=== PATIENT | female | born 1990 | race Two or more races ===

== ENCOUNTER → 2023-10-22 | Outpatient (CLI) | payer BC ==
[2023-10-22 10:34] LABS: Basophils # (auto) 0 10 ^3/uL (0-0.2); Basophils % (auto) 0.4 % (0.0-2.0); Eosinophils # (auto) 0.1 10 ^3/uL (0-0.8); Eosinophils % (auto) 0.9 % (0.0-7.0); Hemoglobin 12.9 g/dL (12.2-16.2); Lymphocytes # (auto) 2.8 10 ^3/uL (0.4-5.4); Lymphocytes % (auto) 25.9 % (10.0-50.0); Mean Corpuscular Hemoglobin 31.4 pg (28.0-32.0); Mean Corpuscular Hgb Conc. 34.9 g/dL (32.0-36.0); Monocytes # (auto) 0.6 10 ^3/uL (0-1.3); Monocytes % (auto) 5.7 % (0.0-12.0); Neutrophils # (auto) 7.2 10 ^3/uL (1.6-8.6); Neutrophils % (auto) 67.1 % (37.0-80.0); Nucleated Red Blood Cells % 0.1 %; Red Blood Cells 4.11 10^6/uL (4.0-5.20); Red Cell Distribution Width 12.8 % (11.8-14.3); White Blood Cell 10.8 10^3/uL (4.4-10.8)
[2023-10-22 10:56] LABS: Amphetamine Screen, Urine Neg (NEGATIVE); Barbiturate Scree,Urine Neg (NEGATIVE)
[2023-10-22 10:58] LABS: Benzodiazephine Screen, Urine Neg (NEGATIVE); Cannabinoid Screen, Urine Neg (NEGATIVE); Cocaine Screen, Urine Neg (NEGATIVE); Opiate Scree,Urine Neg (NEGATIVE); Phencyclidine Screen, Urine Neg (NEGATIVE)
[2023-10-23 06:06] LABS: RPR Non Reactive (Non Reactive)
[2023-10-23 07:07] LABS: Rubeola IgG Antibody 75.1 AU/mL (Immune >16.4)
[2023-10-23 18:06] LABS: Chlamydia Trachomatis, NAA Negative (Negative); Neisseria gonorrhoeae, NAA Negative (Negative)
[2023-10-25 09:06] LABS: QuantiFERON-TB Gold Plus Negative (Negative)
== END | disposition home or self-care (01) ==
LOC: LAB 09:23
PROVIDERS: ATTEND Obstetrics & Gynecology
DX: Z11.3 Encounter for screening for infections with a predominantly sexual mode of transmission (principal); Z72.51 High risk heterosexual behavior
CPT/HCPCS: 36415; 80307; 81025; 83036; 84702; 85025; 86592; 86703; 86765; 86850; 86900; 86901; 87086; 87340

== ENCOUNTER 2024-03-21 08:50 | Observation (INO) | payer BC ==
[2024-03-21] MEDS ORDERED: SERT25TA84 PO (09:27)
--- NOTE | 2024-03-21 09:31 | DVH ---
BIOPHYSICAL PROFILE HISTORY: Polyhydraminos TECHNIQUE: Multiple transabdominal real-time grayscale sonographic images through the gravid uterus o f the fetus with duplex doppler color flow and M-mode spectral analysis FINDINGS: BIOPHYSICAL PROFILE: breathing score: 2 movement score: 2 tone score: 2 Quantitative BRIAN score: 2 (BRIAN: 23.1 cm.) Total score: 8/8 Single live fetus in cephalic presentation. heart rate 154 beats per minute. Fundal placenta without previa or abruption IMPRESSION: 1. Biophysical profile score: 8/8 2. BRIAN 23.1 cm, near upper limit of normal. HS:Y
--- NOTE | 2024-03-21 20:42 | DVHDS2 ---
Physician Discharge Progress N Final Diagnosis: testing for polyhydramnios Operations or Procedures: Operations or Procedures 34yo IUP@32.0wks VSS UA wnl NST reactive (verified by 2 RNs) FKC/PTL precautions reviewed Other Interventions Other Interventions [address] [address] Ph: [phone] DIAGNOSTIC IMAGING Diagnostic Imaging Report : [id number] Signed PATIENT: ASHLEY VALERO ACCT: [id number] UNIT: [id number] : 1990 LOC: [facility] ROOM / BED: TRIAGE2 / A AGE / SEX: 34 / F ADM STATUS: ADM IN SERVICE 2 ORDERING PHYSICIAN: LUIS ARIAS CNM PROCEDURE(s): BPP - BIOPHYSICAL PROFILE REASON: Polyhydraminos ORDER NUMBER(s): [id number], ACCESSION NUMBER(s): [id number] BIOPHYSICAL PROFILE HISTORY: Polyhydraminos TECHNIQUE: Multiple transabdominal real-time grayscale sonographic images through the gravid uterus of the fetus with duplex doppler color flow and M-mode spectral analysis FINDINGS: BIOPHYSICAL PROFILE: breathing score: 2 movement score: 2 tone score: 2 Quantitative BRIAN score: 2 (BRIAN: 23.1 cm.) Total score: 8/8 Single live fetus in cephalic presentation. heart rate 154 beats per minute. Fundal placenta without previa or abruption IMPRESSION: 1. Biophysical profile score: 8/8 2. BRIAN 23.1 cm, near upper limit of normal. HS:Y ATED BY: ELIZA MIJARES DO DICTATED DATE/TIME: 03/21/24927 SIGNED BY: ELIZA MIJARES DO SIGNED DATE/TIME: 03/21/24927 CC: Condition on Discharge: Stable Disposition: Home Discharge Instructions: Diet: Regular Activity: No Restrictions, As Tolerated Medications: PNV Follow Up Care: Specialist: f/u in 1wk Discharge Statement: "Patient was advised to return to the ER or call 911 if any headaches, dizziness, shortness of breath, chest pain, abdominal pain, bleeding, fevers, or worsening of medical condition. Patient was counseled about treatment plan, medications, possible side effects, patientverbalized understanding. All questions were answered to the best of my ability. This discharge took greater then 30 minutes in planning, reviewing documentation, counseling the patient, and discussing with other team members." LUIS ARIAS CNM Mar 21, 2024 20:41
== END 2024-03-21 10:05 | disposition home or self-care (01) ==
LOC: LDRP 08:50 → UNDOADMOB 08:50 → LDRP 08:54 → UNDODISOB 10:05
PROVIDERS: ADMIT Obstetrics & Gynecology; ATTEND Obstetrics & Gynecology
DX: O40.3XX0 Polyhydramnios, third trimester, not applicable or unspecified (principal); Z3A.32 32 weeks gestation of pregnancy; Z88.6 Allergy status to analgesic agent; Z88.0 Allergy status to penicillin; Z88.5 Allergy status to narcotic agent; Z79.899 Other long term (current) drug therapy
CPT/HCPCS: 59025; 76818; 81002; 94760; G0378

== ENCOUNTER 2024-03-28 10:00 | Observation (INO) | payer BC ==
[~2024-03-28 10:00] MED LIST: SERT25TA84 PO
--- NOTE | 2024-03-28 11:04 | DVH ---
BIOPHYSICAL PROFILE HISTORY: Poly TECHNIQUE: Multiple transabdominal real-time grayscale sonographic images through the gravid uterus of the fetus with duplex Doppler color flow and M-mode spectral analysis FINDINGS: BIOPHYSICAL PROFILE: breathing score: 2 movement score: 2 tone score: 2 Quantitative BRIAN score: 2 (BRIAN: 26.3 Cm.) Total score: 8/8 The cervix is not seen. Single live fetus in vertex presentation. heart rate 131 beats per minute. Fundal placenta without previa or abruption Biophysical profile score 8/8 corresponding to an MERLIN of 05/16/24 IMPRESSION: Biophysical profile score: 8/8 BRIAN measures 26.3 cm.
--- NOTE | 2024-03-28 12:09 | DVHDS2 ---
Physician Discharge Progress N Final Diagnosis: testing for polyhydramnios Operations or Procedures: Operations or Procedures 34yo IUP@33.0wks VSS UA wnl NST reactive (verified by 2 RNs) BPP wnl except BRIAN 26.3cm FKC/PTL precautions reviewed Condition on Discharge: Stable Disposition: Home Discharge Instructions: Diet: Regular Activity: No Restrictions, As Tolerated Medications: see med list Follow Up Care: Specialist: f/u in 1wk Discharge Statement: "Patient was advised to return to the ER or call 911 if any headaches, dizziness, shortness of breath, chest pain, abdominal pain, bleeding, fevers, or worsening of medical condition. Patient was counseled about treatment plan, medications, possible side effects, patientverbalized understanding. All questions were answered to the best of my ability. This discharge took greater then 30 minutes in planning, reviewing documentation, counseling the patient, and discussing with other team members." LUIS ARIAS CNM Mar 28, 2024 12:09
== END 2024-03-28 12:17 | disposition home or self-care (01) ==
LOC: LDRP 10:00 → UNDOADMOB 10:00 → LDRP 10:26 → UNDODISOB 12:17
PROVIDERS: ADMIT Obstetrics & Gynecology; ATTEND Obstetrics & Gynecology
DX: O40.3XX0 Polyhydramnios, third trimester, not applicable or unspecified (principal); Z3A.33 33 weeks gestation of pregnancy; Z79.899 Other long term (current) drug therapy; Z98.890 Other specified postprocedural states
CPT/HCPCS: 59025; 76818; 81002; 94760; G0378

== ENCOUNTER 2024-04-04 11:35 | Observation (INO) | payer BC ==
[2024-04-04] MEDS ORDERED: PREN1TAB71 OR (12:14)
--- NOTE | 2024-04-04 12:51 | DVH ---
CLINICAL HISTORY: Polyhydramnios. COMPARISON: US BIOPHYSICAL PROFILE on DOS: 03/28/24, US BIOPHYSICAL PROFILE on DOS: 03/21/24 TECHNIQUE: biophysical profile was performed. Transabdominal sonographic images of the fetus we re obtained. FINDINGS: The fetus is in cephalic position. heart rate measures 129 BPM. Amniotic fluid index measures 25.5 cm. The placenta is fundal in position. BPP profile is an overall score of 8/8, with 2/2 points for breathing, with at least one episode of breathing over a 30 second duration during a 30 minute observation, 2/2 points for m ovements, with 3 or more discrete body or limb movements, 2/2 points for tone, with one or more episodes of extremity extension with return to flexion, or opening and closing of hand, and 2/ 2 points for amniotic fluid, with at least 1 pocket of amniotic fluid that measures 2 cm in 2 perpend icular planes. IMPRESSION: BPP score of 8/8. Amniotic fluid index of 25.5 cm.
--- NOTE | 2024-04-04 22:01 | DVHDS2 ---
Physician Discharge Progress N Final Diagnosis: testing for polyhydramnios Operations or Procedures: Operations or Procedures 34yo IUP@34+wks VSS UA wnl NST reactive (verified by 2 RNs) BPP wnl except BRIAN 25.5cm FKC/PTL precautions reviewed. Condition on Discharge: Stable Disposition: Home Discharge Instructions: Diet: Regular Activity: No Restrictions, As Tolerated Medications: see med list Follow Up Care: Specialist: f/u in 1 wk Discharge Statement: "Patient was advised to return to the ER or call 911 if any headaches, dizziness, shortness of breath, chest pain, abdominal pain, bleeding, fevers, or worsening of medical condition. Patient was counseled about treatment plan, medications, possible side effects, patientverbalized understanding. All questions were answered to the best of my ability. This discharge took greater then 30 minutes in planning, reviewing documentation, counseling the patient, and discussing with other team members." LUIS ARIAS CNM Apr 04, 2024 22:01
== END 2024-04-04 13:25 | disposition home or self-care (01) ==
LOC: UNDOADMOB 11:35 → LDRP 11:35
PROVIDERS: ADMIT Obstetrics & Gynecology; ATTEND Obstetrics & Gynecology
DX: O40.3XX0 Polyhydramnios, third trimester, not applicable or unspecified (principal); Z3A.34 34 weeks gestation of pregnancy; Z88.6 Allergy status to analgesic agent; Z88.5 Allergy status to narcotic agent; Z79.899 Other long term (current) drug therapy
CPT/HCPCS: 59025; 76818; 81002; G0378

== ENCOUNTER 2024-04-11 09:45 | Observation (INO) | payer BC ==
[~2024-04-11 09:45] MED LIST changes: +PREN1TAB71 OR
--- NOTE | 2024-04-11 10:49 | DVH ---
BIOPHYSICAL PROFILE HISTORY: Polyhydramnios TECHNIQUE: Multiple transabdominal real-time grayscale sonographic images through the gravid uterus of the fetus with duplex Doppler color flow and M-mode spectral analysis FINDINGS: BIOPHYSICAL PROFILE: breathing score: 2 movement score: 2 tone score: 2 Quantitative BRIAN score: 2 (BRIAN: 22.8 Cm.) Total score: 8 The cervix was not heart rate 151 beats per minute. IMPRESSION: Biophysical profile score: 8/8
--- NOTE | 2024-04-11 11:33 | DVHDS2 ---
Physician Discharge Progress N Final Diagnosis: testing for polyhydramnios Operations or Procedures: Operations or Procedures 34yo IUP@35.0wks, +FM, denies UCs/VB/LOF VSS UA wnl NST reactive (verified by 2 RNs) BPP wnl FKC/PTL precautions reviewed. Condition on Discharge: Stable Disposition: Home Discharge Instructions: Diet: Consistent carbohydrate Activity: No Restrictions, As Tolerated Medications: see med list Follow Up Care: Specialist: f/u in 1 wk Discharge Statement: "Patient was advised to return to the ER or call 911 if any headaches, dizziness, shortness of breath, chest pain, abdominal pain, bleeding, fevers, or worsening of medical condition. Patient was counseled about treatment plan, medications, possible side effects, patientverbalized understanding. All questions were answered to the best of my ability. This discharge took greater then 30 minutes in planning, reviewing documentation, counseling the patient, and discussing with other team members." LUIS ARIAS CNM Apr 11, 2024 11:33
== END 2024-04-11 11:12 | disposition home or self-care (01) ==
LOC: LDRP 09:45 → UNDOADMOB 09:45 → LDRP 10:00 → UNDODISOB 11:12
PROVIDERS: ADMIT Obstetrics & Gynecology; ATTEND Obstetrics & Gynecology
DX: O09.523 Supervision of elderly multigravida, third trimester (principal); O40.3XX0 Polyhydramnios, third trimester, not applicable or unspecified; Z3A.35 35 weeks gestation of pregnancy; Z79.899 Other long term (current) drug therapy; Z98.890 Other specified postprocedural states
CPT/HCPCS: 59025; 76818; 81002; 94760; G0378

== ENCOUNTER 2024-04-18 09:28 | Observation (INO) | payer BC ==
--- NOTE | 2024-04-18 11:12 | DVH ---
BIOPHYSICAL PROFILE HISTORY: poly TECHNIQUE: Multiple transabdominal real-time grayscale sonographic images through the gravid uterus of the fetus with duplex Doppler color flow and M-mode spectral analysis FINDINGS: BIOPHYSICAL PROFILE: breathing score: 2 movement score: 2 tone score: 2 Quantitative BRIAN score: 2 (BRIAN: 17.1 Cm.) Total score: 8/8 Single live fetus in cephalic presentation. heart rate 141 beats per minute. Fundal placenta without previa or abruption Nuchal cord is present. IMPRESSION: 1. Biophysical profile score: 8/8 2. Nuchal cord. HS:Y
--- NOTE | 2024-04-18 21:18 | DVHDS2 ---
Physician Discharge Progress N Final Diagnosis: testing for polyhydramnios (resolved) nuchal cord Operations or Procedures: Operations or Procedures 34yo IUP@36.0wks. Denies UCs/LOF/VB/VAUGHN/vision changes/RUQ pain. +FM. VSS UA wnl NST reactive (verified by 2 RNs) BPP: WNL (polyhydramnios resolved, nuchal cord present) FKC/PTL/PreE precautions reviewed Other Interventions Other Interventions [place] [address] Ph: [phone] DIAGNOSTIC IMAGING Diagnostic Imaging Report : [id number] Signed PATIENT: ASHLEY VALERO ACCT: [id number] UNIT: [id number] : 1990 LOC: [facility] ROOM / BED: [facility] / A AGE / SEX: 34 / F ADM STATUS: ADM IN SERVICE 0 ORDERING PHYSICIAN: LUIS ARIAS CNM PROCEDURE(s): BPP - BIOPHYSICAL PROFILE REASON: poly ORDER NUMBER(s): [id number], ACCESSION NUMBER(s): [id number] BIOPHYSICAL PROFILE HISTORY: poly TECHNIQUE: Multiple transabdominal real-time grayscale sonographic images through the gravid uterus of the fetus with duplex Doppler color flow and M-mode spectral analysis FINDINGS: BIOPHYSICAL PROFILE: breathing score: 2 movement score: 2 tone score: 2 Quantitative BRIAN score: 2 (BRIAN: 17.1 Cm.) Total score: 8/8 Single live fetus in cephalic presentation. heart rate 141 beats per minute. Fundal placenta without previa or abruption Nuchal cord is present. IMPRESSION: 1. Biophysical profile score: 8/8 2. Nuchal cord. HS:Y ATED BY: ELIZA MIJARES DO DICTATED DATE/TIME: 04/18/241109 SIGNED BY: ELIZA MIJRAES DO SIGNED DATE/TIME: 04/18/241109 CC: Condition on Discharge: Stable Disposition: Home Discharge Instructions: Diet: Regular Activity: No Restrictions, As Tolerated Medications: see med list Follow Up Care: Specialist: f/u in 1 wk Discharge Statement: "Patient was advised to return to the ER or call 911 if any headaches, dizziness, shortness of breath, chest pain, abdominal pain, bleeding, fevers, or worsening of medical condition. Patient was counseled about treatment plan, medications, possible side effects, patientverbalized understanding. All questions were answered to the best of my ability. This discharge took greater then 30 minutes in planning, reviewing documentation, counseling the patient, and discussing with other team members." LUIS ARIAS CNM Apr 18, 2024 21:18
== END 2024-04-18 11:10 | disposition home or self-care (01) ==
LOC: LDRP 09:28 → UNDOADMOB 09:28 → LDRP 09:32 → UNDODISOB 11:10
PROVIDERS: ADMIT Obstetrics & Gynecology; ATTEND Obstetrics & Gynecology
DX: O40.3XX0 Polyhydramnios, third trimester, not applicable or unspecified (principal); O69.81X0 Labor and delivery complicated by cord around neck, without compression, not applicable or unspecified; Z79.899 Other long term (current) drug therapy; Z98.890 Other specified postprocedural states; Z88.0 Allergy status to penicillin; Z88.6 Allergy status to analgesic agent; Z3A.36 36 weeks gestation of pregnancy
CPT/HCPCS: 76818; G0378

== ENCOUNTER 2024-04-18 09:34 | Observation (INO) | payer BC ==
[2024-04-18 15:17] LABS: Fern Testing Negative
--- NOTE | 2024-04-18 21:20 | DVHDS2 ---
Physician Discharge Progress N Final Diagnosis: intact amniotic membranes Operations or Procedures: Operations or Procedures 34yo IUP@36.0wks. Pt presents to OB triage c/o leaking fluid, unsure of ROM. Denies UCs/LOF/VB/VAUGHN/vision changes/RUQ pain. +FM. VSS UA wnl NST reactive (verified by 2 RNs) SSE by RN: negative pooling and nitrazine SVE by RN: closed/thick/high Laboratory Tests Test 04/18/24 15:04 Range/Units Amniotic Fluid Ferning Test Negative FKC/PTL/PreE precautions reviewed f/u in 1 wk Condition on Discharge: Stable Disposition: Home Discharge Instructions: Diet: Regular Activity: No Restrictions, As Tolerated Medications: see med list Follow Up Care: Specialist: f/u in 1 wk Discharge Statement: "Patient was advised to return to the ER or call 911 if any headaches, dizziness, shortness of breath, chest pain, abdominal pain, bleeding, fevers, or worsening of medical condition. Patient was counseled about treatment plan, medications, possible side effects, patientverbalized understanding. All questions were answered to the best of my ability. This discharge took greater then 30 minutes in planning, reviewing documentation, counseling the patient, and discussing with other team members." LUIS ARIAS CNM Apr 18, 2024 21:20
== END 2024-04-18 15:44 | disposition home or self-care (01) ==
LOC: UNDOADMOB 09:34 → LDRP 09:34
PROVIDERS: ADMIT Obstetrics & Gynecology; ATTEND Obstetrics & Gynecology
DX: O40.3XX0 Polyhydramnios, third trimester, not applicable or unspecified (principal); O09.529 Supervision of elderly multigravida, unspecified trimester; Z98.890 Other specified postprocedural states; Z79.899 Other long term (current) drug therapy; Z3A.36 36 weeks gestation of pregnancy
CPT/HCPCS: 59025; 81002; 94760; G0378; Q0114

== ENCOUNTER 2024-04-25 09:34 | Observation (INO) | payer BC ==
--- NOTE | 2024-04-25 10:21 | DVH ---
BIOPHYSICAL PROFILE HISTORY: NUCHAL/POLY TECHNIQUE: Multiple transabdominal real-time grayscale sonographic images through the gravid uterus of the fetus with duplex Doppler color flow and M-mode spectral analysis FINDINGS: BIOPHYSICAL PROFILE: breathing score: 2 movement score: 2 tone score: 2 Quantitative BRIAN score: 2 (BRIAN: 22.0 Cm.) Total score: 8/8 Single live fetus in cephalic presentation. heart rate 143 beats per minute. Posterior placenta without previa or abruption. Marginal cord insertion, approximately 2.5 cm from t he placental edge. An anterior accessory placental lobe is present. IMPRESSION: 1. Biophysical profile score: 8/8 2. BRIAN near upper limit of normal. HS:Y
--- NOTE | 2024-04-25 20:30 | DVHDS2 ---
Physician Discharge Progress N Final Diagnosis: testing for polyhydramnios/Nuchal cord Operations or Procedures: Operations or Procedures 34yo IUP@37.0wks, +FM, denies UCs/LOF/VB VSS UA wnl NST reactive (verified by 2 RNs) FKC/labor precautions reviewed Other Interventions Other Interventions [place] [address] Ph: [phone] DIAGNOSTIC IMAGING Diagnostic Imaging Report : [id number] Signed PATIENT: ASHLEY VALERO ACCT: [id number] UNIT: [id number] : 1990 LOC: [facility] ROOM / BED: TRIAGE2 / A AGE / SEX: 34 / F ADM STATUS: ADM IN SERVICE 6 ORDERING PHYSICIAN: LUIS ARIAS CNM PROCEDURE(s): BPP - BIOPHYSICAL PROFILE REASON: NUCHAL/POLY ORDER NUMBER(s): [id number], ACCESSION NUMBER(s): [id number] BIOPHYSICAL PROFILE HISTORY: NUCHAL/POLY TECHNIQUE: Multiple transabdominal real-time grayscale sonographic images through the gravid uterus of the fetus with duplex Doppler color flow and M-mode spectral analysis FINDINGS: BIOPHYSICAL PROFILE: breathing score: 2 movement score: 2 tone score: 2 Quantitative BRIAN score: 2 (BRIAN: 22.0 Cm.) Total score: 8/8 Single live fetus in cephalic presentation. heart rate 143 beats per minute. Posterior placenta without previa or abruption. Marginal cord insertion, approximately 2.5 cm from the placental edge. An anterior accessory placental lobe is present. IMPRESSION: 1. Biophysical profile score: 8/8 2. BRIAN near upper limit of normal. HS:Y ATED BY: ELIZA MIJARES DO DICTATED DATE/TIME: 04/25/24 101 SIGNED BY: ELIZA MIJARES DO SIGNED DATE/TIME: 04/25/24 101 CC: Condition on Discharge: Stable Disposition: Home Discharge Instructions: Diet: Regular Activity: No Restrictions, As Tolerated Medications: see med list Follow Up Care: Specialist: f/u in 1wk Discharge Statement: "Patient was advised to return to the ER or call 911 if any headaches, dizziness, shortness of breath, chest pain, abdominal pain, bleeding, fevers, or worsening of medical condition. Patient was counseled about treatment plan, medications, possible side effects, patientverbalized understanding. All questions were answered to the best of my ability. This discharge took greater then 30 minutes in planning, reviewing documentation, counseling the patient, and discussing with other team members." LUIS ARIAS CNM Apr 25, 2024 20:30
== END 2024-04-25 11:05 | disposition home or self-care (01) ==
LOC: LDRP 09:34
PROVIDERS: ADMIT Obstetrics & Gynecology; ATTEND Obstetrics & Gynecology
DX: O40.3XX0 Polyhydramnios, third trimester, not applicable or unspecified (principal); O69.81X0 Labor and delivery complicated by cord around neck, without compression, not applicable or unspecified; Z79.899 Other long term (current) drug therapy; Z3A.37 37 weeks gestation of pregnancy; Z88.6 Allergy status to analgesic agent; Z88.5 Allergy status to narcotic agent
CPT/HCPCS: 59025; 76818; 81002; 94760; G0378

== ENCOUNTER 2024-05-02 08:28 | Observation (INO) | payer BC ==
[~2024-05-02] VITALS: Ht 160 cm; Wt 93.9 kg
--- NOTE | 2024-05-02 10:54 | DVH ---
BIOPHYSICAL PROFILE HISTORY: Nuchal, poly TECHNIQUE: Multiple transabdominal real-time grayscale sonographic images through the gravid uterus of the fetus with duplex Doppler color flow and M-mode spectral analysis FINDINGS: BIOPHYSICAL PROFILE: breathing score: 2 movement score: 2 tone score: 2 Quantitative BRIAN score: 2 (BRIAN: 19 Cm.) Total score: 8 Single live fetus in cephalic presentation. heart rate 135 beats per minute. Grade II posteiror placenta without previa or abruption. Accessory placenta is noted. IMPRESSION: Biophysical profile score: 8/8
--- NOTE | 2024-05-02 13:35 | DVHDS2 ---
Physician Discharge Progress N Final Diagnosis: POLYHYDRAMNIA Operations or Procedures: Operations or Procedures NST,SONO Condition on Discharge: Good Disposition: Home Discharge Instructions: Diet: Regular Activity: Light activity Medications: NA Follow Up Care: Specialist: 2D Discharge Statement: "Patient was advised to return to the ER or call 911 if any headaches, dizzi ness, shortness of breath, chest pain, abdominal pain, bleeding, fevers, or worsening of medical condition. Patient was counseled about treatment plan, medications, possible side effects, patientverbalized understanding. All questions were answered to the best of my ability. This discharge took greater then 30 minutes in planning, reviewing documentation, counseling the patient, and discussing with other team members." SOFY ODEN DO May 02, 2024 13:35
== END 2024-05-02 11:26 | disposition home or self-care (01) ==
LOC: UNDOADMOB 09:46 → LDRP 09:46
PROVIDERS: ADMIT Obstetrics & Gynecology; ATTEND Obstetrics & Gynecology
DX: O40.3XX0 Polyhydramnios, third trimester, not applicable or unspecified (principal); Z79.52 Long term (current) use of systemic steroids; Z98.890 Other specified postprocedural states; Z79.899 Other long term (current) drug therapy; Z88.0 Allergy status to penicillin; Z88.8 Allergy status to other drugs, medicaments and biological substances; Z3A.38 38 weeks gestation of pregnancy
CPT/HCPCS: 59025; 76818; 81002; 94760; G0378

== ENCOUNTER 2024-05-09 07:30 | Observation (INO) | payer BC ==
--- NOTE | 2024-05-09 10:26 | DVH ---
BIOPHYSICAL PROFILE HISTORY: Poly, Nuchal TECHNIQUE: Multiple transabdominal real-time grayscale sonographic images through the gravid uterus of the fetus with duplex Doppler color flow and M-mode spectral analysis FINDINGS: BIOPHYSICAL PROFILE: breathing score: 2 movement score: 2 tone score: 2 Quantitative BRIAN score: 2 (BRIAN: 18.9 Cm.) Total score: 8 The cervix not well visualized. Single live fetus in cephalic presentation. heart rate 126 beats per minute. Posterior grade 3 placenta without previa or abruption IMPRESSION: Biophysical profile score: 8
--- NOTE | 2024-05-09 13:07 | DVHDS2 ---
Physician Discharge Progress N Final Diagnosis: polyhydramnai Operations or Procedures: Operations or Procedures nst,sono Condition on Discharge: Good Disposition: Home Discharge Instructions: Diet: Regular Activity: No Restrictions, As Tolerated Medications: na Follow Up Care: Specialist: 4d Discharge Statement: "Patient was advised to return to the ER or call 911 if any headaches, dizziness, shortness of breath, chest pain, abdominal pain, bleeding, fevers, or worsening of medical condition. Patient was counseled about treatment plan, medications, possible side effects, patientverbalized understanding. All questions were answered to the best of my ability. This discharge took greater then 30 minutes in planning, reviewing documentation, counseling the patient, and discussing with other team members." SOFY ODEN DO May 09, 2024 13:07
== END 2024-05-09 10:50 | disposition home or self-care (01) ==
LOC: LDRP 09:45 → UNDOADMOB 09:45 → LDRP 09:50 → UNDODISOB 10:50
PROVIDERS: ADMIT Obstetrics & Gynecology; ATTEND Obstetrics & Gynecology
DX: O40.3XX0 Polyhydramnios, third trimester, not applicable or unspecified (principal); O69.81X0 Labor and delivery complicated by cord around neck, without compression, not applicable or unspecified; Z3A.39 39 weeks gestation of pregnancy; Z79.899 Other long term (current) drug therapy
CPT/HCPCS: 59025; 76818; 81002; 94760; G0378

== ENCOUNTER 2024-05-16 11:05 | Inpatient (IN) | payer BC ==
[~2024-05-16] VITALS: Ht 160 cm; Wt 93.9 kg
--- NOTE | 2024-05-16 13:03 | DVH ---
BIOPHYSICAL PROFILE HISTORY: Polyhydramnios/ Nuchal Cord TECHNIQUE: Multiple transabdominal real-time grayscale sonographic images through the gravid uterus of the fetus with duplex Doppler color flow and M-mode spectral analysis Comparison: 05/09/2024 FINDINGS: BIOPHYSICAL PROFILE: breathing score: 2 movement score: 2 tone score: 2 Quantitative BRIAN score: 2 (BRIAN: 20.1 Cm.) Total score: 8 The cervix is not visualized Single live fetus in cephalic presentation. heart rate 131 beats per minute. Grade 2 fundal placenta without previa or abruption IMPRESSION: Biophysical profile score: 8 Faculty Support Coordinator noted minimal breathing with about 2-3 diaphragmatic contractions. Faculty Support Coordinator noted notification of provider.
[2024-05-16 14:32] LABS: Urine Bacteria None Seen /hpf (None Seen)
[2024-05-16 14:40] LABS: Basophils # (auto) 0 10 ^3/uL (0-0.2); Basophils % (auto) 0.4 % (0.0-2.0); Eosinophils # (auto) 0 10 ^3/uL (0-0.8); Eosinophils % (auto) 0.4 % (0.0-7.0); Hematocrit 38.2 % (36.0-46.0); Hemoglobin 12.9 g/dL (12.2-16.2); Lymphocytes # (auto) 2.1 10 ^3/uL (0.4-5.4); Lymphocytes % (auto) 24.5 % (10.0-50.0); Mean Corpuscular Hgb Conc. 33.7 g/dL (32.0-36.0); Monocytes # (auto) 0.5 10 ^3/uL (0-1.3); Monocytes % (auto) 5.4 % (0.0-12.0); Neutrophils % (auto) 69.3 % (37.0-80.0); Nucleated Red Blood Cells % 0.1 %; Platelet Count (auto) 160 10^3/uL (140-450); Red Cell Distribution Width 15.1 % (11.8-14.3); White Blood Cell 8.6 10^3/uL (4.4-10.8)
[2024-05-16 14:52] LABS: Urine Blood Negative /uL (Negative); Urine Clarity Clear (Clear); Urine Color Yellow (Yellow); Urine Protein, UAD Negative (Negative); Urine Specific Gravity 1.014 (1.001-1.035); Urine Squamous Epithelial Cell FEW /hpf (<5); Urine Urobilinogen Normal (Negative); Urine WBC 1 /hpf (0 - 5)
[2024-05-16] MEDS: miSOPROStol 50 MCG per PRE-CUT 1/2 TAB PO PRN (14:52)
[2024-05-16 14:56] LABS: INR 0.91 (0.9-1.15); Partial Thromboplastin Time 25.8 SEC (24.5-34.5); Prothrombin Time 9.7 sec (9.3-11.8)
[2024-05-16 15:04] LABS: Amphetamine Screen, Urine Neg (NEGATIVE); Barbiturate Scree,Urine Neg (NEGATIVE); Benzodiazephine Screen, Urine Neg (NEGATIVE); Cannabinoid Screen, Urine Neg (NEGATIVE); Cocaine Screen, Urine Neg (NEGATIVE); Opiate Scree,Urine Neg (NEGATIVE); Phencyclidine Screen, Urine Neg (NEGATIVE)
[2024-05-16 15:04] LABS: Alanine Aminotransferase 14 U/L (7-40); Anion Gap 10 (5-15); Aspartate Aminotransferase 26 U/L (13-40); BUN/Creatinine Ratio 9.9 (10.0-20.0); Bilirubin, Total 0.4 mg/dL (0.2-1.0); Calcium 9.9 mg/dL (8.7-10.4); Carbon Dioxide 22 mmol/L (20-31); Chloride 103 mmol/L (98-107); Potassium 3.6 mmol/L (3.5-5.1); Total Protein 6.8 g/dL (5.7-8.2)
[2024-05-16] MEDS: LACTATED RINGER'S 1,000 ML IV SCH (15:04)
[2024-05-16 15:05] LABS: Alkaline Phosphatase 192 U/L (46-116); Blood Urea Nitrogen 8 mg/dL (9-23); Glucose 69 mg/dL (74-106); Sodium 135 mmol/L (136-145)
[2024-05-16 17:35] LABS: Fern Testing Positive
--- NOTE | 2024-05-16 17:55 | DVHHP2 ---
OB CC & HPI Date Date of Admission: May 16, 2024 Patient Identification: : 2 Para: 1 EDC: May 16, 2024 EGA: 39 Chief Complaints: Reason for admission: induction of labor Indication for induction: maternal distance History of Present Complaints 34yo IUP@40.0wks presents for elective induction of labor for living far away. Denies UCs/LOF/VB/VAUGHN/vision changes/RUQ pain. Endorses +FM. PNC: Routine PNC at [facility] OB with Dr. Marie, adequate visits, PNC complicated by iron deficiency anemia and depression. GTT wnl, dating based on LMP c/w 10wk sono, GBS negative. OB hx: x1, uncomplicated in 2007, 7lbs 12oz Past Medical History Cardiac: No pertinent Hx Pulmonary: No pertinent Hx Central Nervous System: No pertinent Hx GI: No pertinent Hx Hemotology/Oncology: Iron deficiency anemia Hepatobiliary: No pertinent Hx Psychiatric: Depression Musculoskeletal: No pertinent Hx Rheumotologic: No pertinent Hx Infectious Disease: No peritnent Hx ENT: No pertinent Hx Renal/: No pertinent Hx Endocrine: No pertinent Hx Dermatology: No pertinent Hx Past Surgical History: No pertinent Hx OB History OB History Care: Good Care Ultrasounds: Normal mid trimester US Obstetrical Complications: None Medical Complications: None Allergies: Coded Allergies: Acetaminophen (Verified Allergy, Unknown, 05/02/24) Prednisone (Verified Allergy, Unknown, 05/02/24) Uncoded Allergies: PENICILLIN (Allergy, Unknown, 12/17/23) Home Meds Reported Medications Vit W/ Ferrous Fumara (PNV PLUS MULTIVI) Plus Tab, 1 OR, TAB 04/04/24 Sertraline Hcl (Zoloft) 25 Mg Tab, 1 TAB PO DAILY, #30 TAB 2 Refills 03/21/24 Current Medications Current Medications Medications (Trade) Dose Ordered Sig/Minda Route PRN Reason Start Time Stop Time Status Last Admin Lactated Ringer's 1,000 ml @ 125 mls/hr Q8H IV 05/16/24 13:15 05/16/24 15:04 Sonia Hair (Tucks) 1 pad PRN PRN TOP PERINEAL AREA DISCOMFORT 05/16/24 13:15 Sodium Lauryl Sulfate (Phisoderm) 240 ml PRN PRN TOP PERINEAL AREA DISCOMFORT 05/16/24 13:15 Benzocaine (Dermoplast) 1 applic PRN PRN TOP PERINEAL AREA DISCOMFORT 05/16/24 13:15 Lidocaine HCl (Xylocaine) 40 ml ONCE PRN IJ PERINEAL AREA DISCOMFORT 05/16/24 13:15 Misoprostol (Cytotec) 50 mcg Q4HPRN PRN PO CERVICAL RIPENING 05/16/24 15:00 05/16/24 14:52 Sertraline HCl (Zoloft) 25 mg DAILY PO 05/17/24 10:00 UNV Family & Social History Family/Social History Past Family/Social History: denies Blood Type: O+ Rubella: immune RPR/VDRL: Negative GBS Status: Negative HBsAG: Negative Review of Systems Constitutional: No symptom reported Ears, Nose, & Throat: No symptom reported Eyes: No symptom reported Pulmonary/Respiratory: No symptom reported Cardiovascular: No symptom reported Gastrointestinal: No symptom reported Genitourinary: No symptom reported Musculoskeletal: No symptom reported Skin: No symptom reported Psychiatric: No symptom reported Endocrine: No symptom reported Hemotologic/Lymphatic: No symptom reported OB Admission Exam Physical Exam Vitals: VSS EFW in office today per pt: about 7lbs, vertex HEENT: TMs Normal, Fontanelles Normal, Nasal Mucosa Normal, Eyes non-injected, Oropharynx Normal, PERRLA, Moist Membranes, EOMI Heart: Rhythm Normal Lungs: Clear Abdomen: Gravid Extremities: Normal Reflexes: Normal Cervical Dilatation: 1cm Effacement: 50% Station: -3 Membranes: Intact Heart Rate: 120's Accelerations: Accelerations Present Decelerations: No Decelerations Food And Beverage Associate Variability: Average (6-25) Contractions on Admission: None OB Plan Plan Admitting Diagnosis: Elective Induction of Labor Plan: Induction Induction Methd: Misoprostol protocol Other Plan: A: 34yo IUP@40.0wks Induction of Labor Category I EFM Intact Membranes GBS negative P: Admit to L&D Informed consent obtained Discussed risks, benefits, alternatives of IOL with PO cytotec with pt. Pt consents to IOL with PO cytotec monitoring per order Routine labs ordered Pain mgmt PRN Frequent position changes in and out of bed encouraged Limit SVE unless necessary Intrauterine resuscitation PRN Anticipate CNM will consult with [facility] S[facility] May 16, 2024 17:55
[2024-05-16] MEDS: ROPIVACAINE HCL 0 ML ONE (18:13)
[2024-05-16] MEDS: ePHEDrine SULFATE 50 MG/ML AMP IV ONE (18:15)
[2024-05-16] MEDS ORDERED: NALOXONE HCL 0.4 MG/ML VIAL IV ONE (18:15)
[2024-05-16] MEDS: fentaNYL CITRATE 100 MCG/2 ML VL IV ONE ×2 (18:15→19:59)
[2024-05-16] MEDS: LACT. RINGERS/OXYTOCIN 20UNITS 500 ML IV ONE ×2 (19:02→19:11)
[2024-05-16] MEDS: LIDOCAINE 2%HCL (LOCAL ANESTH.) INJ 20ML MDV IJ PRN (20:15)
--- NOTE | 2024-05-16 21:03 | LDN2 ---
Labor and Delivery Note Date 05/16/24 Age 34 2 Para 2 now AB 0 EDC 05/16/24 EGA 40.0wks Diagnosis IOL elective then Vaginal Delivery: VTX Vacuum Assisted: No Placenta: Spontaneous Sex: Female Weight 7lbs 15oz Apgars 8/9 Nuchal Cord Present: No Nuchal Cord Transected: No Amniotic Fluid: Meconium Stained, Thin Anesthesia local Episiotomy: No Extension: No Lacerations: Yes (right periuretheral and first degree perineal) Repaired with 3-0 vicryl EBL QBL 500ml Complications none Conditions stable [employer] Lino Delivery Summary At 1834 this 34yo now delivered a viable Female infant by w/ APGARS 8/9. YNES presentation. placed skin to skin on pts chest. Intact 3-vessel cord bilobed placenta delivered spontaneously, Sam[place]. Pitocin IV bolus started. Cord clamped and cut after pulsation ceased. Cord blood sent. Placenta sent to pathology. Patient had local anesthesia. Cervix/vagina inspected (intact), right periurethral and first degree perineal lacerations present which was repaired with 3-0 vicryl suture. Straight catheter placed during repair and 200ml urine output. Fundus at U, firm, midline, and light lochia. QBL 500ml. VSS. Count correct x2. Patient to care and baby to couplet care, both stable. LUIS ARIAS CNM May 16, 2024 21:03
[2024-05-16] MEDS ORDERED: ONDANSETRON HCL 4 MG/2 ML VIAL IV PRN (21:30)
[2024-05-16] MEDS: DOCUSATE SOD 100 MG CAP PO SCH (22:13)
[2024-05-16] MEDS: IBUPROFEN 600 MG TAB PO PRN (22:13)
[2024-05-16 23:09] VITALS: BP 116/63; PULSE 64; RESP 16; TEMP 99; O2SAT 96
--- NOTE | 2024-05-17 01:19 | DVHPN2 ---
Progress Note Date Seen: May 17, 2024 Subjective S: bleeding is less, eating food without issues, denies lightheaded/dizziness, pain well controlled with oral medications, no concerns with urinating, passing flatus, no BM yet, ambulating well, well vital signs Vital Sign Date Time Temp Pulse Resp B/P (MAP) Pulse Ox O2 Delivery O2 Flow Rate FiO2 05/16/24 23:09 99.0 64 16 116/63 (80) 96 99.0 05/16/24 21:45 Room Air medications Current Medications Medications Dose Ordered Sig/Minda Route Start Time Stop Time Status Last Admin Dose Admin Sonia Hair 1 pad PRN PRN TOP 05/16/24 13:15 Sodium Lauryl Sulfate 240 ml PRN PRN TOP 05/16/24 13:15 Benzocaine 1 applic PRN PRN TOP 05/16/24 13:15 Sertraline HCl 25 mg DAILY PO 05/17/24 10:00 Ibuprofen 600 mg Q6HP PRN PO 05/16/24 21:30 05/16/24 22:13 600 MG Docusate Sodium 200 mg HS PO 05/16/24 22:00 05/16/24 22:13 200 MG laboratory and microbiology Laboratory Tests 05/16/24 14:12 Test 05/16/24 14:12 Range/Units Serum Glucose 69 L 74-106 mg/dL Objective O: VSS Chest: heart sounds normal and lung sounds clear bilaterally Abd: soft, non-tender, fundus at U/firm/midline, active bowel sounds, no rebound or guarding Perineum: sutures intact, edges well approximated, no erythema/edema noted Ext: Non-tender, No edema, 2+ BLE DTRs Lochia: minimal See lab results Problems(with codes): (1) (normal spontaneous vaginal delivery) (2) First degree perineal laceration during delivery (3) Periurethral laceration, delivered, current hospitalization (4) Depression (5) Precipitous drop in hematocrit Assessment/Plan A: 34yo now PPD#1 s/p Rh+ Rubella Immune Pain control with PO medications Bowel regimen P: D/C home today Rx sent to pharmacy precautions and preeclampsia warning signs reviewed F/U with [facility] office in 2 weeks` Plan discussed with: Patient, Spouse LUIS ARIAS CNM May 17, 2024 01:19
[2024-05-17 03:15] VITALS: BP 135/84; PULSE 62; RESP 16; TEMP 98.7; O2SAT 96
[2024-05-17 07:00] VITALS: BP 135/75; PULSE 53; RESP 16; TEMP 98.7; O2SAT 98
[2024-05-17 07:06] LABS: RPR Non Reactive (Non Reactive)
[2024-05-17 08:40] LABS: Basophils # (auto) 0 10 ^3/uL (0-0.2); Basophils % (auto) 0.4 % (0.0-2.0); Eosinophils # (auto) 0 10 ^3/uL (0-0.8); Eosinophils % (auto) 0.2 % (0.0-7.0); Hemoglobin 11.6 g/dL (12.2-16.2); Lymphocytes # (auto) 1.6 10 ^3/uL (0.4-5.4); Lymphocytes % (auto) 17.9 % (10.0-50.0); Mean Corpuscular Hemoglobin 30.6 pg (28.0-32.0); Mean Corpuscular Hgb Conc. 34.2 g/dL (32.0-36.0); Mean Corpuscular Volume 89.5 fL (80.0-100.0); Monocytes # (auto) 0.5 10 ^3/uL (0-1.3); Monocytes % (auto) 5.7 % (0.0-12.0); Neutrophils # (auto) 6.9 10 ^3/uL (1.6-8.6); Neutrophils % (auto) 75.8 % (37.0-80.0); Platelet Count (auto) 148 10^3/uL (140-450); Red Cell Distribution Width 15.1 % (11.8-14.3); White Blood Cell 9.1 10^3/uL (4.4-10.8)
[2024-05-17] MEDS: SERTRALINE HCL 50 MG TAB PO SCH (10:51)
[2024-05-17] MEDS: DERMOPLAST 60ML BOTTLE TOP PRN (10:54)
[2024-05-17] MEDS: WITCH HAZEL-GLYCERIN PAD TOP PRN (10:54)
[2024-05-17] MEDS: PHISODERM TOP SOLN 240ML BTL TOP PRN (10:55)
[2024-05-17 11:00] VITALS: BP 113/68; PULSE 60; RESP 15; TEMP 97.6; O2SAT 97
[2024-05-17 15:00] VITALS: BP 137/83; PULSE 80; RESP 15; TEMP 98.4; O2SAT 98
[2024-05-17 19:00] VITALS: BP 134/86; PULSE 70; RESP 18; TEMP 98.6; O2SAT 99
--- NOTE | 2024-05-17 19:52 | DVHINCON2 ---
Date of Service if different f: May 17, 2024 Consultation ([facility] [facility]) Labs Laboratory Tests Test 05/16/24 14:12 05/16/24 14:31 05/16/24 17:30 05/17/24 08:20 Prothrombin Time 9.7 sec (9.3-11.8) Prothromb Time International Ratio 0.91 (0.9-1.15) Activated Partial Thromboplast Time 25.8 SEC (24.5-34.5) Sodium Level 135 mmol/L (136-145) Potassium Level 3.6 mmol/L (3.5-5.1) Chloride Level 103 mmol/L (98-107) Carbon Dioxide Level 22 mmol/L (20-31) Anion Gap 10 (5-15) Blood Urea Nitrogen 8 mg/dL (9-23) Creatinine 0.81 mg/dL (0.550-1.02) Glomerular Filtration Rate Calc 97 mL/min (>90) BUN/Creatinine Ratio 9.9 (10.0-20.0) Serum Glucose 69 mg/dL (74-106) Calcium Level 9.9 mg/dL (8.7-10.4) Total Bilirubin 0.4 mg/dL (0.2-1.0) Aspartate Amino Transf (AST/SGOT) 26 U/L (13-40) Alanine Aminotransferase (ALT/SGPT) 14 U/L (7-40) Alkaline Phosphatase 192 U/L (46-116) Total Protein 6.8 g/dL (5.7-8.2) Albumin 4.0 g/dL (3.2-4.8) Rapid Plasma Reagin Non reactive (Non Reactive) Hepatitis C Antibody Negative (Negative) Urine Color Yellow (Yellow) Urine Clarity Clear (Clear) Urine pH 6.0 (5.0-9.0) Urine Specific [place] 1.014 (1.001-1.035) Urine Protein Negative (Negative) Urine Ketones Negative (Negative) Urine Blood Negative /uL (Negative) Urine Nitrite Negative (Negative) Urine Bilirubin Negative (Negative) Urine Urobilinogen Normal mg/dL (Negative) Urine Leukocyte Esterase Negative /uL (Negative) Urine RBC <1 /hpf (0 - 4) Urine WBC 1 /hpf (0 - 5) Urine Squamous Epithelial Cells Few /hpf (<5) Urine Bacteria None seen /hpf (None Seen) Urine Glucose Normal mg/dL (Normal) Urine Opiates Screen Neg (NEGATIVE) Urine Fentanyl Screen Neg (NEGATIVE) Urine Barbiturates Screen Neg (NEGATIVE) Urine Phencyclidine Screen Neg (NEGATIVE) Urine Amphetamines Screen Neg (NEGATIVE) Urine Benzodiazepines Screen Neg (NEGATIVE) Urine Cocaine Screen Neg (NEGATIVE) Urine Cannabinoids Screen Neg (NEGATIVE) Amniotic Fluid Ferning Test Positive White Blood Count 9.1 10^3/uL (4.4-10.8) Red Blood Count 3.80 10^6/uL (4.0-5.20) Hemoglobin 11.6 g/dL (12.2-16.2) Hematocrit 34.0 % (36.0-46.0) Mean Corpuscular Volume 89.5 fL (80.0-100.0) Mean Corpuscular Hemoglobin 30.6 pg (28.0-32.0) Mean Corpuscular Hemoglobin Concent 34.2 g/dL (32.0-36.0) Red Cell Distribution Width 15.1 % (11.8-14.3) Platelet Count 148 10^3/uL (140-450) Mean Platelet Volume 10.5 fL (6.9-10.8) Neutrophils (%) (Auto) 75.8 % (37.0-80.0) Lymphocytes (%) (Auto) 17.9 % (10.0-50.0) Monocytes (%) (Auto) 5.7 % (0.0-12.0) Eosinophils (%) (Auto) 0.2 % (0.0-7.0) Basophils (%) (Auto) 0.4 % (0.0-2.0) Neutrophils # (Auto) 6.9 10 ^3/uL (1.6-8.6) Lymphocytes # (Auto) 1.6 10 ^3/uL (0.4-5.4) Monocytes # (Auto) 0.5 10 ^3/uL (0-1.3) Eosinophils # (Auto) 0 10 ^3/uL (0-0.8) Basophils # (Auto) 0 10 ^3/uL (0-0.2) Nucleated Red Blood Cells 0.0 % Appetite: Fair Appearance: Stated age Psychomotor activity: WNL Behavioral: Cooperative Eye contact: Appropriate Speech: WNL Affect: Appropriate, Mood Congruent Mood: Euthymic Thought processes: Linear/Goal-directed Thought content: WNL Suicidal ideations: Absent Homicidal ideations: Absent Orientation: Person, Place, Time, Situation Memory intact: Recent Intellect: Average Abstractability: WNL Concentration: Adequate Attention: Adequate Judgement: WNL Insight: Good Vitals Vital Signs Date Time Temp Pulse Resp B/P (MAP) Pulse Ox O2 Delivery O2 Flow Rate FiO2 05/17/24 19:09 Room Air 05/17/24 15:00 98.4 80 15 137/83 (101) 98 98.4 Current medications Current Medications Medications Dose Ordered Sig/Minda Route Start Time Stop Time Status Last Admin Dose Admin Witch Laxmi 1 pad PRN PRN TOP 05/16/24 13:15 05/17/24 10:54 1 PAD Sodium Lauryl Sulfate 240 ml PRN PRN TOP 05/16/24 13:15 05/17/24 10:55 240 ML Benzocaine 1 applic PRN PRN TOP 05/16/24 13:15 05/17/24 18:38 1 APPLIC Sertraline HCl 25 mg DAILY PO 05/17/24 10:00 05/17/24 10:51 25 MG Ibuprofen 600 mg Q6HP PRN PO 05/16/24 21:30 05/17/24 18:37 600 MG Docusate Sodium 200 mg HS PO 05/16/24 22:00 05/16/24 22:13 200 MG Treatment plan discussed: Family, Others Medication adjusted: No Diagnosis: unspecified depression Plan : Patient denies suicidal/homicidal ideation currently and may discharge home after medical clearance She has therapist appt tomorrow, 05/18/24 via telepsych Recommend to continue Zoloft 25mg po daily and outpatient follow up. History of Present Illness Reason for Consult : score of 11 on depression scale HPI : This is a 34-year-old female delivered baby girl yesterday. She reports hx of depression since 2021. At that time, had symptoms such as difficulty coping, low moods, lack of energy. She answered questions on depression scale based on her past history. She denies feeling depressed, anhedonia, or hopeless currently. She describes "feeling over the madsen." She has a 16-year-old son and denies hx of depression or psychosis. She denies suicidal/homicidal ideation. She denies auditory/visual hallucination or paranoia. She reports sleep and appetite have been ok considering . She has a lot of support with her partner. She is cooperative and interactive with interview. Past Psychiatric History : She denies past psych admissions, holds or suicide attempts. She is seeing a psychiatrist and therapist for 2-3 years. She was prescribed zoloft 50mg, lowered to 25mg after . She has follow up therapist appt tomorrow. Past Medical History : She denies Social History : She lives with , 16-year-old son. She is employed as a financial services auditor. She denies substance use history. She denies any trauma history. KLEVER MARTIN DNP May 17, 2024 19:52
[2024-05-17] MEDS ORDERED: DOCU-265 PO (20:33)
[2024-05-17] MEDS ORDERED: IBU600T PO (20:33)
[2024-05-17] MEDS ORDERED: PREN1TAB71 PO (20:33)
--- NOTE | 2024-05-17 20:38 | DVHDS2 ---
Obstetrics Discharge Summary Obstetrics Discharge Summary Date of Admission: May 16, 2024 Date of Discharge: May 17, 2024 Reason For Admission: Induction of Labor (elective) Procedures: NST, Ultrasound Intrapartum Procedures: Spontaneous vaginal deliv Procedures: Hct/date: (05/17/24), Hgb/date: (05/17/24) Operative Complicat: Laceration (first degree Perineal and right periurethral) Discharge Diagnosis: Term -Delivered Discharge Information: Activity (as tolerated, no heavy lifting and nothing in the vagina for 6 weeks), Diet (Routine), Medications (Rx sent), Instructions (Routine), Discharge to (Home), Accompanied by (partner), Discarge date (05/17/24) LUIS ARIAS CNM May 17, 2024 20:38
== END 2024-05-17 21:34 | disposition home or self-care (01) | DRG 807 ==
LOC: LDRP 11:05 → OBSVTOIN 13:00 → LDRP 13:12
PROVIDERS: ADMIT Obstetrics & Gynecology; ATTEND Obstetrics & Gynecology
PROC: 10E0XZZ Delivery of Products of Conception, External Approach (ICD-10-PCS; principal; 2024-05-16)
PROC: 0HQ9XZZ Repair Perineum Skin, External Approach (ICD-10-PCS; 2024-05-16)
PROC: 3E033VJ Introduction of Other Hormone into Peripheral Vein, Percutaneous Approach (ICD-10-PCS; 2024-05-16)
PROC: 3E0DXGC Introduction of Other Therapeutic Substance into Mouth and Pharynx, External Approach (ICD-10-PCS; 2024-05-16)
DX: O77.0 Labor and delivery complicated by meconium in amniotic fluid (principal); Z37.0 Single live birth; O99.02 Anemia complicating childbirth; O99.344 Other mental disorders complicating childbirth; D50.9 Iron deficiency anemia, unspecified; F32.A Depression, unspecified; O70.0 First degree perineal laceration during delivery; Z3A.40 40 weeks gestation of pregnancy; Z88.0 Allergy status to penicillin; Z88.6 Allergy status to analgesic agent
CPT/HCPCS: 36415; 59025; 59409; 76818; 80053; 80307; 81001; 81002; 85025; 85610; 85730; 86592; 86780; 86803; 86850; 86900; 86901; 94760; 96360; 96361; 96365; 96366; G0378; J2590